=== PATIENT | male | born 1955 | race Hispanic/Latino ===

== ENCOUNTER 2017-09-05 05:10 | Emergency (ER) | payer BC, OTHER ==
[2017-09-05 05:21] VITALS: RESP 16; TEMP 97.6
--- NOTE | 2017-09-05 05:34 | C.PDOC ---
History Of Present Illness Patient presents to the ER with a complaint of nausea, vomiting, diarrhea, and hypotension. Patient states he got home today and had 10-15 episodes of diarrhea , he began feeling lightheaded dizzy. Patient has a blood pressure machine at home which showed he had low blood pressure. Patient also notes having some tingling to the hands. Denies fever, chills, or chest pain. Time Seen by Provider: 09/05/17 05:34 Chief Complaint (Nursing): Dizziness/Lightheaded History Per: Patient History/Exam Limitations: no limitations Onset/Duration Of Symptoms: Hrs Current Symptoms Are (Timing): Still Present Associated Symptoms Preceding Syncopal Episode: No Predromal Symptoms (Sudden Onset) Seizure Or Post-ictal Symptoms: None Fall Associated With With Symptoms: No Severity: Moderate Pain Scale Rating Of: 4 Recent travel outside of the [place]: No - Symptoms Of CVA Associated Symptoms: denies: Impaired Speech, Seizure Activity, New Vision Deficit(Left), New Vision Deficit(Right), Decreased Ability To Walk, New Confusion Past Medical History Reviewed: Historical Data, Nursing Documentation, Vital Signs Vital Signs: Last Vital Signs Temp 97.6 F 09/05/17 05:19 Pulse 82 09/05/17 05:19 Resp 16 09/05/17 05:19 BP 117/80 09/05/17 05:19 Pulse Ox 95 09/05/17 06:07 - Medical History PMH: HTN, Hypothyroidism Family History: States: No Known Family Hx - Social History Hx Alcohol Use: Yes Hx Substance Use: No Review Of Systems Constitutional: Negative for: Fever, Chills Cardiovascular: Positive for: Light Headedness. Negative for: Chest Pain Respiratory: Negative for: Shortness of Breath Gastrointestinal: Positive for: Nausea, Vomiting, Diarrhea Neurological: Positive for: Dizziness Physical Exam - Physical Exam Appears: Non-toxic Skin: Warm, Dry Head: Normacephalic Oral Mucosa: Moist Chest: Symmetrical, No Tenderness Cardiovascular: Rhythm Regular Respiratory: No Rales, No Rhonchi, No Wheezing Gastrointestinal/Abdominal: Soft, Tenderness (Mild diffuse), No Guarding, No Rebound Neurological/Psych: Oriented x3 ED Course And Treatment - Laboratory Results Result Diagrams: 09/05/17 05:47 09/05/17 05:47 ECG: Interpreted By Me, Viewed By Me ECG Rhythm: Sinus Rhythm (82), Nonspecific Changes O2 Sat by Pulse Oximetry: 95 (room air) Pulse Ox Interpretation: Normal Progress Note: Blood work, EKG, and urinalysis ordered. IV fluids administered. Disposition Counseled Patient/Family Regarding: Studies Performed, Diagnosis - Disposition Disposition Time: 05:34 Condition: FAIR Forms: [facility] (Indian) - Clinical Impression Clinical Impression: Nausea, Diarrhea, Dizziness - Scribe Statement The provider has reviewed the documentation as recorded by the Scriblaura Matthews All medical record entries made by the Scribe were at my direction and personally dictated by me. I have reviewed the chart and agree that the record accurately reflects my personal performance of the history, physical exam, medical decision making, and the department course for this patient. I have also personally directed, reviewed, and agree with the discharge instructions and disposition. Physician Patient Turnover Patient Signed Over To: Corrie Villalta Handoff Comments: pending re-eval and disposition
[2017-09-05] MEDS ORDERED: Sodium Chloride 0.9% 1,000 ML IV ONE ×2 (05:38→06:35)
[2017-09-05 05:54] LABS: BASO # 0.1 K/uL (0.0-0.2); BASO % 0.6 % (0.0-2.0); EOS # 0.1 K/uL (0.0-0.7); EOS % 0.5 % (0.0-4.0); HEMOGLOBIN 16.8 g/dL (12.0-18.0); LYMPH # 1.7 K/uL (1.0-4.3); LYMPH % 15.9 % (20.0-40.0); MEAN CELL VOLUME 88.8 fL (80.0-94.0); MEAN CORPUSCULAR HEMOGLOBIN 30.8 pg (27.0-31.0); MEAN CORPUSCULAR HGB CONC 34.7 g/dL (33.0-37.0); MONO # 0.4 K/uL (0.0-0.8); MONO % 4.1 % (0.0-10.0); NEUT # 8.3 K/uL (1.8-7.0); NEUT % 78.9 % (50.0-75.0); NRBC % 0.1 % (0.0-2.0); RBC 5.46 Mil/uL (4.40-5.90); RED CELL DISTRIBUTION WIDTH 13.8 % (11.5-14.5); WHITE BLOOD COUNT 10.5 K/uL (4.8-10.8)
[2017-09-05 06:02] LABS: VENOUS BLOOD GAS BASE EXCESS -2.2 mmol/L (0.0-2.0); VENOUS BLOOD GAS PCO2 41 mmHg (40-60); VENOUS BLOOD GAS PO2 44 mm/Hg (30-55); VENOUS BLOOD PH 7.36 (7.32-7.43)
[2017-09-05 06:12] LABS: ALB/GLOB RATIO 1.2 (1.0-2.1); ALBUMIN 5.6 g/dL (3.5-5.0); CALCIUM 10.9 mg/dl (8.6-10.4)
[2017-09-05 06:39] LABS: GRANULAR CAST 3 /lpf (0-1); SPERM URINE RARE /hpf; SQUAMOUS EPITHIAL < 1 /hpf (0-5); URINE BACTERIA OCC (<OCC); URINE BILIRUBIN NEGATIVE (NEGATIVE); URINE BLOOD NEGATIVE (NEGATIVE); URINE CLARITY Hazy (Clear); URINE COLOR Amber (YELLOW); URINE GLUCOSE (UA) NORMAL (Normal); URINE HYALINE CAST >20 /lpf (0-2); URINE LEUKOCYTE ESTERASE NEG Leu/uL (Negative); URINE PROTEIN 1+ mg/dL (NEGATIVE)
[2017-09-05 07:41] VITALS: BP 112/69; PULSE 75; O2SAT 98
[2017-09-05 08:19] LABS: VENOUS BLOOD GAS PCO2 46 mmHg (40-60); VENOUS BLOOD GAS PO2 25 mm/Hg (30-55)
--- NOTE | 2017-09-07 12:36 | CARD ---
APPROVED REPORT EKG Measurement Heart [id number] <Conclusion> Normal sinus rhythm Normal ECG
== END 2017-09-05 08:38 | disposition home or self-care (01) ==
LOC: C.ER 05:10
DX: R11.0 Nausea (principal); R19.7 Diarrhea, unspecified; R42 Dizziness and giddiness
CPT/HCPCS: 80053; 81001; 82803; 82948; 83690; 83735; 85025; 85610; 85730; 93005; 96360; 99285; J7040